=== PATIENT | female | born 1985 | race African-American/Black ===

== ENCOUNTER 2018-04-08 19:44 | Emergency (ER) | payer BC ==
[~2018-04-08] VITALS: Ht 167.6 cm; Wt 90.7 kg
[2018-04-08] MEDS ORDERED: ONDANSETRON HCL INJ 2 MG/ML VIAL IV STA (20:33)
[2018-04-08] MEDS ORDERED: ACETAMINOPHEN 325 MG TAB PO ONE (20:45)
[2018-04-08] MEDS ORDERED: SODIUM CHLORIDE 0.9% 1000ML 1,000 ML IV STA (21:26)
--- NOTE | 2018-04-08 22:38 | Diagnostic Imaging Report ---
EXAM: US TRANSVAGINAL-HOPD INDICATION: Pelvic pain COMPARISON: None TECHNIQUE: Grayscale transverse and sagittal transabdominal and transvaginal images were obtained of the pelvis. Transvaginal images were necessary to better assess anatomic detail. The ovaries were examined with grayscale, color Doppler, and spectral waveform analysis. FINDINGS: Uterus Orientation: Normal Size: 7.6 x 3.9 x 4.1 cm, normal Mass: None Cervix: Normal Endometrium: Thickness: IUD appears position within the endometrial cavity. Endometrial stripe is approximately 3 mm. Right ovary: Size: 2.5 x 2.6 x 2.3 cm Mass/Cyst: None Vascularity: Normal venous and arterial color flow and waveforms. Left ovary: Size: 2.4 x 2.9 x 2.2 cm Mass/Cyst: Complex cystic structure measuring 2.0 x 2.1 x 2.3 cm with echogenic debris and/or thick irregular septations. Vascularity: Normal venous and arterial color flow and waveforms. Adnexa: No masses Cul-de-sac: Small amount of free fluid IMPRESSION: 1. Normal sized ovaries with documented flow. Low likelihood of ovarian torsion. 2. Complex left ovarian cystic structure may reflect a hemorrhagic cyst. Recommend 6-8 week follow-up to document resolution. Signed by: Dr Hawa Bone MD on 04/08/2018 10:35 PM
[2018-04-09 00:39] VITALS: BP 156/84
== END 2018-04-08 23:09 | disposition home or self-care (01) ==
LOC: FSED 19:44
DX: R10.2 Pelvic and perineal pain (principal); R11.0 Nausea; N83.202 Unspecified ovarian cyst, left side; M54.5 Low back pain
CPT/HCPCS: 76830; 80053; 81003; 81025; 85025; 99284; J2405; J7030